=== PATIENT | male | born 1950 | race Caucasian/White ===

== ENCOUNTER → 2016-06-22 | Outpatient (CLI) | payer MEDICARE, OTHER ==
[~2016-06-22] MED LIST: ADALAT CC90 MG PO; AMARYL PO; ANTIBIOTIC PO; ASPIRINBUFF PO; BACTROBAN22 GM TP; LISINOPRIL PO; METFORMIN PO; TRAMADOL HCL50 M1 PO; VIBRAMYCIN100 M1 PO; ZESTRIL40 MG PO
--- NOTE | ~2016-06-22 | US37 ---
[facility] A Service of [facility] & [facility] RADIOLOGY TEXT RESULTS PATIENT: VANITA LANDA LOCATION: CNIV : [birth year] UNIT #: [id number] AGE: [address]: Esequiel Tran MD SEX: M ORDER DR: [id number] [facility] [address] [place], [place] [address] [id number] O MR#: [id number] Acc #: [id number] NAME: VANITA LANDA : 1950 SEX: M STUDY DATE/TIME: 06/22/2016 11:17 UNIT: CNIV ROOM: STUDY DESCRIPTION: US Carotid W/Doppler Bilateral Attending Physician: Esequiel Tran M.D. Referring Physician: Esequiel Tran M.D. Ordering Physician: Esequiel Tran M.D. Primary Care Physician: Christiana Fontaine M.D. MEDICAL IMAGING REPORT This report is preliminary unless electronic signature is present EXAM Carotid duplex scan, 06/22/2016 HISTORY Carotid stenosis. FINDINGS The right common carotid artery has a small amount of heterogeneous plaque. There is a large amount of heterogeneous plaque in the right proximal internal and external carotid arteries. Peak systolic velocity in the proximal right internal carotid artery is 108 cm/sec with an end-diastolic velocity of 32 cm/sec. The ICA/CCA ratio on the right is 1.45. Peak systolic velocity in the right external carotid artery is 186 cm/sec. The right vertebral artery is patent with antegrade flow. The left common carotid artery has a small amount of heterogeneous plaque. There is a large amount of heterogeneous plaque in the proximal left internal and external carotid arteries. Peak systolic velocity in the mid left internal carotid artery is 149 cm/sec with an end-diastolic velocity of 53 cm/sec. The ICA/CCA ratio on the left is 2.00. Peak systolic velocity in the left external carotid artery is 111 cm/sec. The left vertebral artery is patent with antegrade flow. IMPRESSION Plaque, but no significant stenosis (less than 50%) in the right internal carotid artery. Significant stenosis of the right external carotid artery. Moderate stenosis (50% to 69%) in the left internal carotid artery. No significant stenosis of the left external carotid artery. Patent vertebral arteries bilaterally with antegrade flow. Dictated by... [facility] A Service of [facility] RADIOLOGY TEXT RESULTS PATIENT: VANITA LANDA LOCATION: CNIV : [birth year] UNIT #: [id number] AGE: [address]: Esequiel Tran MD SEX: M ORDER DR: Honorio Arriaga M.D. THIS IS AN ELECTRONICALLY VERIFIED REPORT Honorio Arriaga M.D. at 06/23/2016 9:41 AM ELIZABETH/rosa TD: 06/22/2016 21:03 JOB #: [id number] MEDICAL IMAGING REPORT Page 1 of 1 COPY
--- NOTE | ~2016-06-22 | US136 ---
[facility] A Service of [facility] RADIOLOGY TEXT RESULTS PATIENT: VANITA LANDA LOCATION: CNIV : [birth year] UNIT #: [id number] AGE: [address]: Esequiel Tran MD SEX: M ORDER DR: [id number] [facility] [address] [place], [place] [address] [id number] O MR#: [id number] Acc #: [id number] NAME: VANITA LANDA : 1950 SEX: M STUDY DATE/TIME: 06/22/2016 10:43 UNIT: CNIV ROOM: STUDY DESCRIPTION: US U/L Ext Art Study [facility] Attending Physician: Esequiel Tran M.D. Referring Physician: Esequiel Tran M.D. Ordering Physician: Esequiel Tran M.D. Primary Care Physician: Christiana Fontaine M.D. MEDICAL IMAGING REPORT This report is preliminary unless electronic signature is present EXAM Ankle-brachial indices HISTORY Peripheral artery disease. Stents in both legs. FINDINGS The right brachial pressure is 155 and the left brachial pressure is 122. The right dorsalis pedis pressure is 76, posterior tibial 64, and toe 121, for an ankle-brachial index of 0.49. The left dorsalis pedis pressure is 129, posterior tibial 130, and toe 142, for an ankle-brachial index of 0.84. Pulse volume recording tracings demonstrate significant dampening of the signal at the right ankle and digital level compared to the left. Doppler waveform analysis indicates a monophasic signal in the right posterior tibial and dorsalis pedis arteries and a biphasic signal in the left posterior tibial and dorsalis pedis arteries. IMPRESSION Severe ischemia of the right leg with an ankle-brachial index of 0.49. Mild ischemia of the left leg with an ankle-brachial index of 0.84. 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 Dictated by... Honorio Arriaga M.D. [facility] A Service of [facility] RADIOLOGY TEXT RESULTS PATIENT: VANITA LANDA LOCATION: CNIV : [birth year] UNIT #: [id number] AGE: [address]: Esequiel Tran MD SEX: M ORDER DR: THIS IS AN ELECTRONICALLY VERIFIED REPORT Honorio Arriaga M.D. at 06/23/2016 9:41 AM SBS/pcl TD: 06/22/2016 15:15 JOB #: [id number] MEDICAL IMAGING REPORT Page 1 of 1 COPY
== END | disposition home or self-care (01) ==
LOC: CNIV 10:25
DX: I65.22 Occlusion and stenosis of left carotid artery (principal); I65.23 Occlusion and stenosis of bilateral carotid arteries; I99.8 Other disorder of circulatory system; I73.9 Peripheral vascular disease, unspecified
CPT/HCPCS: 93880; 93922